=== PATIENT | male | born 1970 | race Caucasian/White ===

== ENCOUNTER 2025-06-06 16:34 | Emergency (ER) | payer OTHER, SELFPAY ==
[2025-06-06] VITALS (8 sets, daily range): BP systolic 123–153; BP diastolic 68–90; BMI 21.9
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
[2025-06-06 18:10] LABS: Hematocrit 38.2 % (39.0-52.0); Hemoglobin 13.1 g/dL (13.0-18.0); Mean Corp Hgb Conc. 34.3 g/dL (33.0-37.0); Mean Corpuscular Volume 91.0 fL (80.0-94.0); Nucleated Red Blood Cells % 0 % (-); Platelet Count 177 10^3/uL (130-400); Red Cell Dist. Width 12.1 % (11.5-14.5)
[2025-06-06 18:24] LABS: Blood Urea Nitrogen 22 mg/dl (9-20); Calcium 8.9 mg/dl (8.4-10.2); Carbon Dioxide 29 mmol/L (22-30); Chloride 104 mmol/L (98-107); Estimated Creatinine Clearance 103 ml/min; Glucose 116 mg/dl (70-99); Potassium 4.1 mmol/L (3.5-5.1); Sodium 135 mmol/L (135-145); eGFR > 60.00
[2025-06-06] MEDS: TORADOL 15 MG IV (19:39)
[2025-06-06] MEDS: DILAUDID 0.5 MG IV (21:14)
[2025-06-06] MEDS: ROXICODONE 5 MG PO (22:09)
== END 2025-06-06 22:15 | disposition home or self-care (01) ==
LOC: EMR 16:34
PROVIDERS: EMERGENCY PHYSICIAN Emergency Medicine; FAMILY PHYSICIAN Physician Assistant
DX: S22.41XA Multiple fractures of ribs, right side, initial encounter for closed fracture (principal); S42.101A Fracture of unspecified part of scapula, right shoulder, initial encounter for closed fracture; S32.048A Other fracture of fourth lumbar vertebra, initial encounter for closed fracture; V13.4XXA Pedal cycle driver injured in collision with car, pick-up truck or van in traffic accident, initial encounter; Y93.55 Activity, bike riding; I45.10 Unspecified right bundle-branch block
CPT/HCPCS: 96374; 96375; 99284; 71101; 71260; 74177; 80048; 85025; 93005; Q9967

== ENCOUNTER → 2025-06-15 07:45 | Emergency (ER) | payer OTHER, SELFPAY ==
[2025-06-15 07:47] VITALS: BP 155/78
[2025-06-15 08:46] VITALS: BP 133/83
[2025-06-15 08:49] VITALS: BMI 21.9
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
== END | disposition home or self-care (01) ==
LOC: EMR 07:45
PROVIDERS: EMERGENCY PHYSICIAN Emergency Medicine; FAMILY PHYSICIAN Physician Assistant
DX: S22.41XA Multiple fractures of ribs, right side, initial encounter for closed fracture (principal); S42.101A Fracture of unspecified part of scapula, right shoulder, initial encounter for closed fracture; V13.4XXA Pedal cycle driver injured in collision with car, pick-up truck or van in traffic accident, initial encounter
CPT/HCPCS: 99283; 71046; 93005